=== PATIENT | male | born 1945 | race Caucasian/White ===

== ENCOUNTER 2018-03-05 01:14 | Emergency (ER) | payer MEDICARE, MEDICAID ==
[2018-03-05] MEDS ORDERED: OCTREOTIDE IV ONE (01:15)
[2018-03-05] MEDS ORDERED: SODIUM CHLORIDE 0.9% IV ONE (01:15)
[2018-03-05] MEDS: Sodium Chloride 0.9% 1,000 ML IV SCH (01:30)
[2018-03-05] MEDS: Octreotide 100 MCG/ML SDV IVPUSH ONE (01:35)
[2018-03-05] MEDS: Lactated Ringers 1,000 ML IV SCH (01:36)
[2018-03-05] MEDS: Octreotide 250 MCG in Sodium Chloride 0.9% 250 ML IV SCH (01:44)
[2018-03-05] MEDS: Sodium Chloride 0.9% 250 ML IV SCH (01:54)
[2018-03-05] MEDS: Pantoprazole 40 MG Vial IVPUSH ONE (02:05)
[2018-03-05] MEDS: EPINEPHrine 1:10,000 1 MG/10 ML Syringe IVPUSH ONE (02:25)
--- NOTE | 2018-03-05 05:32 | EDM.PDOC ---
ED HPI GENERAL MEDICAL PROBLEM - General Stated Complaint: VOMIT BLOOD Time Seen by Provider: 03/05/18 01:14 Source of Information: Reports: Patient, Other (Paramedics, fiance,) History Limitations: Reports: Other (Patient's is weak, can answer questions, and is a poor historian because he feels so weak.Oriented x 3.) - History of Present Illness INITIAL COMMENTS - FREE TEXT/NARRATIVE: This 72-year-old alcoholic, [facility] resident,was just discharge from [facility] 02/27/18 and per his fiance was "noted to have 5 ulcers in his stomach for which one was banded", 1/2 hr ago started vomiting blood.His fianc drove him to the hospital and states "he vomited 2 cups of blood at the [facility]:" 1 ) a coffee ground emesis (200-240 ml), and 2) a second cup (200-240 ml of blood bright red blood. He is a poor historian because he is feeling so weak and has a soft voice. He looked ashen, was not diaphoretic, and did not have scleral icterus. Just as he was seen in the ED and coming down the hallway to his exam room he vomited an additional 700 mL of red blood into the emesis bag which had been given to him at the [facility]. This gave us guestimate of at least 6307-8538 mL blood loss. Because of extreme weakness and obesity, 246 pounds, it was difficult to get him out of the car, into the wheelchair, and from the wheelchair onto the gurney. He had a moderate amount of bright red blood soiling of his shirt. Stat 2 uints of O+ blood ordered verbally to lab staff which was standing by with the rapid response team, octreotide 50 micro push with 50 micron per hour started, a flush of 1000ml Lactated ringers with simultaneous 1000 ml NS started with pressure bags attached. Simultaneously, Elevation of the head improved his O2 sats because of his difficulty breathing secondary to his large obese abdomen. . Concurrently, at 0130, helicopter was dispatched by first physician staff [facility] as I had spoken to the green chain puller, Dr.Khan Jacobs, regarding transfer to [facility]. His first blood pressure 158/128 heart rate 76, respirations 32, oxygen saturation 92. EK, L atrial premature contractions, prolonged [place] interval, left anterior hemiblock noted heart rate 64 and no sign of ischemia or STEMI noted Kathleen placed with minimal output noted. 0153: BP 54/52 , HR 79, O2 SAT 98, RR 33. 1st unt packed RBC's hung 01:54 with pressure bag, and 80 mg IV Protonix given, as the flight transport crew arrived [id number] 0157: 89/58, 79, 36 20:06 the flight crew arrived. 20:07 A they were changing the hospital monitor leads to the transport leads, he vomited an estimated liter of blood onto the floor. 2017 pupils became fixed and patient became unresponsive. CPR started. Efforts by the flight crew to place an endotracheal tube were met with difficulty. The vocal cords were not visualized, as there was such extensive recurrent filling of of oropharyngeal with blood that the suction could not remove fast enough in order to visualize the cords. And an estimated additional 1 liter of blood poured out of his mouth on to the floor. At 0227 his fianc, who was supportive and had present for the entire ED encounter and who is his power of business attorney, said "I think we should stop". Patient became DNR/DNI and resuscitation efforts were discontinued. 0229 Pt was pronouced . CAUSE OF UPPER GI BLEED SECONDARY TO EGD 02/27/18 DOCUMENTED ESOPHAGEAL VARICES AND GASTRIC ULCERS ED ROS GENERAL - Review of Systems Review Of Systems: ROS reveals no pertinent complaints other than HPI. ED EXAM, GENERAL - Physical Exam Exam: See Below Free Text/Narrative:: SEE HPI Course - Vital Signs Last Recorded V/S: Last Vital Signs Temp Pulse 78 03/05/18 01:53 Resp 34 H 03/05/18 01:53 BP 52/36 L 03/05/18 02:01 Pulse Ox 85 L 03/05/18 01:53 - Orders/Labs/Meds Orders: Active Orders 24 hr Category Date Time Status EKG Documentation Completion [RC] ASDIRECTED Care 03/05/18 01:30 Active Kathleen Catheter Insertion [Insert Urinary Catheter] [OM. Care 03/05/18 01:30 Ordered PC] Q24H Oxygen Therapy, ED [RC] ASDIRECTED Care 03/05/18 01:14 Active Urinary Catheter Assessment [RC] QSHIFT Care 03/05/18 01:26 Active PATIENT RETYPE [BBK] Stat Lab 03/05/18 01:20 Results RED BLOOD CELLS LP [BBK] Stat Lab 03/05/18 01:20 Results TYPE AND SCREEN [BBK] Stat Lab 03/05/18 01:20 Results Transfuse Red Blood Cells [COMM] Urgent Oth 03/05/18 01:27 Ordered EKG 12 Lead [EK] Routine Ther 03/05/18 01:27 Ordered Labs: Laboratory Tests 03/05/18 03/05/18 03/05/18 Range/Units 01:20 01:50 01:50 WBC 12.4 H (4.5-12.0) X10-3/uL RBC 2.99 L (4.30-5.75) x10(6)uL Hgb 9.8 L (11.5-15.5) g/dL POC Hgb Cancelled Hct 29.1 L (30.0-51.3) % POC Hct Cancelled MCV 97.3 H (80-96) fL MCH 32.7 (27.7-33.6) pg MCHC 33.6 (32.2-35.4) g/dL RDW 13.7 (11.5-15.5) % Plt Count 94 L (125-369) X10(3)uL MPV 8.4 (7.4-10.4) fL Neut % (Auto) 62.4 (46-82) % Lymph % (Auto) 28.3 (13-37) % Gillespie % (Auto) 5.9 (4-12) % Eos % (Auto) 3 (1.0-5.0) % Baso % (Auto) 1 (0-2) % Neut # (Auto) 7.7 (1.6-8.3) # Lymph # (Auto) 3.5 (0.6-5.0) # Gillespie # (Auto) 0.7 (0.0-1.3) # Eos # (Auto) 0.4 (0.0-0.8) # Baso # (Auto) 0.1 (0.0-0.2) # POC VBG pH Cancelled POC VBG pCO2 Cancelled POC VBG HCO3 Cancelled POC VBG Base Excess Cancelled POC Sodium Cancelled POC Potassium Cancelled POC Chloride Cancelled POC Total CO2 Cancelled POC Anion Gap Cancelled POC BUN Cancelled POC Creatinine (0.6-1.3) mg/dL POC Glucose Cancelled Blood Type O POSITIVE Gel Antibody Screen Negative Crossmatch See Detail 03/05/18 Range/Units 02:59 WBC (4.5-12.0) X10-3/uL RBC (4.30-5.75) x10(6)uL Hgb (11.5-15.5) g/dL POC Hgb Hct (30.0-51.3) % POC Hct MCV (80-96) fL MCH (27.7-33.6) pg MCHC (32.2-35.4) g/dL RDW (11.5-15.5) % Plt Count (125-369) X10(3)uL MPV (7.4-10.4) fL Neut % (Auto) (46-82) % Lymph % (Auto) (13-37) % Gillespie % (Auto) (4-12) % Eos % (Auto) (1.0-5.0) % Baso % (Auto) (0-2) % Neut # (Auto) (1.6-8.3) # Lymph # (Auto) (0.6-5.0) # Gillespie # (Auto) (0.0-1.3) # Eos # (Auto) (0.0-0.8) # Baso # (Auto) (0.0-0.2) # POC VBG pH POC VBG pCO2 POC VBG HCO3 POC VBG Base Excess POC Sodium 138 POC Potassium 5.1 POC Chloride 108 POC Total CO2 13.0 L* POC Anion Gap POC BUN 28 H POC Creatinine 1.2 (0.6-1.3) mg/dL POC Glucose 199 H Blood Type Gel Antibody Screen Crossmatch Meds: Medications Discontinued Medications Generic Name Dose Route Start Last Admin Trade Name Freq PRN Reason Stop Dose Admin Lactated Ringer's 1,000 mls @ 999 mls/hr 03/05/18 01:30 Ringers, Lactated IV ASDIRECTED OSEI Sodium Chloride 1,000 mls @ 999 mls/hr 03/05/18 01:30 Normal Saline IV ASDIRECTED OSEI Sodium Chloride 250 mls @ 100 mls/hr 03/05/18 01:30 Normal Saline IV ASDIRECTED OSEI Octreotide Acetate 250 mcg/ 252.5 mls @ 50.5 mls/hr 03/05/18 01:45 Sodium Chloride IV Q10H OSEI 50 MCG/HR Octreotide Acetate 50 mcg 03/05/18 01:30 Sandostatin IVPUSH 03/05/18 01:31 ONETIME ONE Pantoprazole Sodium Confirm 03/05/18 01:58 Protonix Iv Administered 03/05/18 01:59 Dose 80 mg .ROUTE .STK-MED ONE Departure - Departure Time of Disposition: 01:30 [facility] Disposition: 20 Preliminary Cause of *Q: Other_Special Instruction (Exsanguination secondary to massive duodenal ulcer and esophageal variceal bleed) Condition: Critical Clinical Impression: , Bleeding, Esophageal ulcer with bleeding, Gastrointestinal hemorrhage associated with chronic gastritis, Bleeding gastric varices, Bleeding gastric erosion Gastric ulcer Qualifiers: Gastric ulcer chronicity: acute Gastric ulcer complication status: with hemorrhage Qualified Code(s): K25.0 - Acute gastric ulcer with hemorrhage - Discharge Information *PRESCRIPTION DRUG MONITORING PROGRAM REVIEWED*: Not Applicable *COPY OF PRESCRIPTION DRUG MONITORING REPORT IN PATIENT SHERRI: Not Applicable Referrals: Chace Wang MD [Primary Care Provider] - Forms: ED Department Discharge - My Orders Last 24 Hours: My Active Orders 03/05/18 01:14 Oxygen Therapy, ED [] ASDIRECTED 03/05/18 01:20 PATIENT RETYPE [BBK] Stat RED BLOOD CELLS LP [BBK] Stat TYPE AND SCREEN [BBK] Stat 03/05/18 01:26 Urinary Catheter Assessment [] QSHIFT 03/05/18 01:27 Transfuse Red Blood Cells [COMM] Urgent EKG 12 Lead [EK] Routine 03/05/18 01:30 EKG Documentation Completion [] ASDIRECTED Kathleen Catheter Insertion [Insert Urinary Catheter] [OM.PC] Q24H - Assessment/Plan Last 24 Hours: My Active Orders 03/05/18 01:14 Oxygen Therapy, ED [] ASDIRECTED 03/05/18 01:20 PATIENT RETYPE [BBK] Stat RED BLOOD CELLS LP [BBK] Stat TYPE AND SCREEN [BBK] Stat 03/05/18 01:26 Urinary Catheter Assessment [] QSHIFT 03/05/18 01:27 Transfuse Red Blood Cells [COMM] Urgent EKG 12 Lead [EK] Routine 03/05/18 01:30 EKG Documentation Completion [RC] ASDIRECTED Kathleen Catheter Insertion [Insert Urinary Catheter] [OM.PC] Q24H
[2018-03-05] MEDS: Pantoprazole 40 MG Vial ONE (07:26)
== END 2018-03-05 02:29 | disposition expired ==
LOC: FB.ED 01:14
DX: K25.0 Acute gastric ulcer with hemorrhage (principal)
CPT/HCPCS: 36415; 36430; 80047; 85025; 86850; 86900; 86901; 86920; 86922; 92950; 93005; 96361; 96365; 96374; 96375; 99285; C9113; J0171; J2354; J7030; J7050; J7120; P9016